=== PATIENT | male | born 1985 | race Two or more races ===

== ENCOUNTER 2018-01-15 02:34 | Emergency (ER) | payer SELFPAY ==
[~2018-01-15] VITALS: Ht 180.3 cm; Wt 72.6 kg
--- NOTE | 2018-01-15 02:44 | Emergency Room Report ---
History of Present Illness General Chief Complaint: Alcohol Intoxication Source: EMS Present Illness HPI Patient presents with altered level of consciousness at a bar. The paramedics smelled alcohol on his breath. There is no evidence of any head trauma. Paramedics performed an Accu-Chek which was 108. The patient was discharged from [facility] 4 hours prior to this presentation. Apparently, he was there for alcohol intoxication. Allergy to Seroquel suggests prior psychiatric history. He is unable to answer questions at the moment. Allergies: Coded Allergies: QUETIAPINE (Verified Allergy, Unknown, 01/15/18) Patient History Limited by: medical condition Past Medical History: see triage record Social History: Reports: alcohol use Social History Narrative has family in town Reviewed Nursing Documentation: PMH: Agreed; PSxH: Agreed Nursing Documentation-PMH History Of Psychiatric Problem: Yes Hx Seizures: Yes Review of Systems All Other Systems: limited Physical Exam Vital Signs Date Time Temp Pulse Resp B/P (MAP) Pulse Ox O2 Delivery O2 Flow Rate FiO2 01/15/18 02:37 97.7 102 16 111/66 91 Room Air 97.7 Sp02 EP Interpretation: reviewed, normal General Appearance: well appearing, no apparent distress, lethargic - eyes closed, localizes pain, min verbal response Head: normocephalic Eyes: bilateral eye PERRL, bilateral eye Scleral Injection ENT: moist mucus membranes - + gag Neck: supple Respiratory: lungs clear, normal breath sounds Cardiovascular #1: regular rate, rhythm Cardiovascular #2: 2+ radial (R) Gastrointestinal: normal inspection, non tender, no mass, non-distended, decreased bowel sounds Musculoskeletal: back normal, other - no deformity Neurologic: alert, oriented x3, motor strength/tone normal, DTRs symmetric, sensory intact, no Babinski Psychiatric: other - lethargic Skin: normal inspection, warm/dry Medical Decision Making Diagnostic Impression: Primary Impression: Altered level of consciousness Additional Impressions: Acute alcoholic intoxication Qualified Codes: F10.929 - Alcohol use, unspecified with intoxication, unspecified Elevated transaminase level Self-destructive behavior ER Course Patient with ALOC. DDX: alcohol intoxication, other drugs, electrolyte abnormalities amongst others. Chest clear and no evidence of head trauma. Imaging not indicated. Labs ordered. IV hydration and observation. Labs with elevated BAL. CBC normal. Elevated liver function tests. UA not obtained. Patient awake and ambulatory. States wants to live life out of control, no SI or HI. This patient is a chronic risk of self injury due to poor impulse control, limited coping skills, and judgment intermittently impaired by intoxication.~ I believe that the available clinical evidence to suggest that these characteristics derived primarily from personality disorder and are likely very stable over time.~ Hospitalization would likely attenuate risk of self-harm only during fpc period, without lasting risk reduction.~ Serious self-harm, while possible, would likely be inadvertent, and because of impulsivity, and foreseeable.~ For these reasons, I do not believe hospitalization would provide meaningful reduction in risk of self-harm.This patient is a chronic risk of self injury due to poor impulse control, limited coping skills, and judgment intermittently impaired by intoxication.~ I believe that the available clinical evidence to suggest that these characteristics derived primarily from personality disorder and are likely very stable over time.~ Hospitalization would likely attenuate risk of self-harm only during fpc period, without lasting risk reduction. ~ Serious self-harm, while possible, would likely be inadvertent, and because of impulsivity, and foreseeable.~ For these reasons, I do not believe hospitalization would provide meaningful reduction in risk of self-harm. Stable for discharge with responsible person. Brother here. States patient refuses to take psych meds and self medicates with alcohol. Suggested rehab. States has gone through rehab. Laboratory Tests Test 01/15/18 02:45 01/15/18 03:50 White Blood Count 4.9 K/UL (4.8-10.8) Red Blood Count 4.78 M/UL (4.70-6.10) Hemoglobin 14.7 G/DL (14.2-18.0) Hematocrit 42.9 % (42.0-52.0) Mean Corpuscular Volume 90 FL (80-99) Mean Corpuscular Hemoglobin 30.7 PG (27.0-31.0) Mean Corpuscular Hemoglobin Concent 34.3 G/DL (32.0-36.0) Red Cell Distribution Width 12.6 % (11.6-14.8) Platelet Count 410 K/UL (150-450) Mean Platelet Volume 6.0 FL (6.5-10.1) L Neutrophils (%) (Auto) 46.6 % (45.0-75.0) Lymphocytes (%) (Auto) 30.7 % (20.0-45.0) Monocytes (%) (Auto) 18.8 % (1.0-10.0) H Eosinophils (%) (Auto) 1.8 % (0.0-3.0) Basophils (%) (Auto) 2.2 % (0.0-2.0) H Sodium Level 142 MMOL/L (136-145) Potassium Level 3.6 MMOL/L (3.5-5.1) Chloride Level 105 MMOL/L (98-107) Carbon Dioxide Level 25 MMOL/L (21-32) Anion Gap 12 mmol/L (5-15) Blood Urea Nitrogen 8 mg/dL (7-18) Creatinine 0.5 MG/DL (0.55-1.30) L Estimate Glomerular Filtration Rate > 60 mL/min (>60) Glucose Level 101 MG/DL (74-106) Calcium Level 8.1 MG/DL (8.5-10.1) L Total Bilirubin 0.3 MG/DL (0.2-1.0) Aspartate Amino Transferase (AST) 305 U/L (15-37) H Alanine Aminotransferase (ALT) 326 U/L (12-78) H Alkaline Phosphatase 132 U/L (46-116) H Total Protein 6.9 G/DL (6.4-8.2) Albumin 3.4 G/DL (3.4-5.0) Globulin 3.5 g/dL Albumin/Globulin Ratio 1.0 (1.0-2.7) Salicylates Level 1.2 ug/mL (2.8-20) L Acetaminophen Level < 2 MCG/ML (10-30) L Serum Alcohol 395 mg/dL Urine Opiates Screen Negative (NEGATIVE) Urine Barbiturates Screen Negative (NEGATIVE) Phencyclidine (PCP) Screen Negative (NEGATIVE) Urine Amphetamines Screen Negative (NEGATIVE) Urine Benzodiazepines Screen Negative (NEGATIVE) Urine Cocaine Screen Negative (NEGATIVE) Urine Marijuana (THC) Screen Negative (NEGATIVE) Last Vital Signs Date Time Temp Pulse Resp B/P (MAP) Pulse Ox O2 Delivery O2 Flow Rate FiO2 01/15/18 08:00 36.40219 100 18 128/78 97 Room Air 207.5 temp 97.5 Status: improved Disposition: HOME, SELF-CARE Condition: Improved Mikey Barnes M.D. Jan 15, 2018 02:44
[2018-01-15 03:00] VITALS: BP 111/66
[2018-01-15 03:08] LABS: BASOPHILS % (AUTO) 2.2 % (0.0-2.0); EOSINOPHILS % (AUTO) 1.8 % (0.0-3.0); HEMATOCRIT 42.9 % (42.0-52.0); HEMOGLOBIN 14.7 G/DL (14.2-18.0); LYMPHOCYTES % (AUTO) 30.7 % (20.0-45.0); MEAN CORPUSCULAR VOLUME 90 FL (80-99); MONOCYTES % (AUTO) 18.8 % (1.0-10.0); NEUTROPHILS % (AUTO) 46.6 % (45.0-75.0); PLATELET COUNT 410 K/UL (150-450); RED BLOOD COUNT 4.78 M/UL (4.70-6.10); RED CELL DISTRIBUTION WIDTH 12.6 % (11.6-14.8); WHITE BLOOD COUNT 4.9 K/UL (4.8-10.8)
[2018-01-15 03:18] LABS: ANION GAP 12 mmol/L (5-15); BLOOD UREA NITROGEN 8 mg/dL (7-18); CALCIUM 8.1 MG/DL (8.5-10.1); CARBON DIOXIDE 25 MMOL/L (21-32); CHLORIDE 105 MMOL/L (98-107); CREATININE 0.5 MG/DL (0.55-1.30); POTASSIUM 3.6 MMOL/L (3.5-5.1); SODIUM 142 MMOL/L (136-145)
[2018-01-15 03:24] LABS: ALANINE AMINOTRANSFERASE 326 U/L (12-78); ALBUMIN 3.4 G/DL (3.4-5.0); ALKALINE PHOSPHATASE 132 U/L (46-116); ASPARTATE AMINO TRANSFERASE 305 U/L (15-37); BILIRUBIN,TOTAL 0.3 MG/DL (0.2-1.0)
[2018-01-15 04:57] VITALS: BP 118/74
[2018-01-15 07:26] VITALS: BP 131/87
[2018-01-15 08:00] VITALS: BP 128/78
== END 2018-01-15 08:00 | disposition home or self-care (01) ==
LOC: EDBD 02:34 → EMR 03:30
DX: R40.4 Transient alteration of awareness (principal); F10.929 Alcohol use, unspecified with intoxication, unspecified; R74.0 Nonspecific elevation of levels of transaminase and lactic acid dehydrogenase [LDH]; F17.200 Nicotine dependence, unspecified, uncomplicated; G40.909 Epilepsy, unspecified, not intractable, without status epilepticus; E78.5 Hyperlipidemia, unspecified; Z88.8 Allergy status to other drugs, medicaments and biological substances
CPT/HCPCS: 36415; 80053; 80307; 82962; 85025; 96360; 99284; G0480; 80329